=== PATIENT | female | born 1940 | race Caucasian/White ===

== ENCOUNTER 2017-04-08 09:50 | Emergency (ER) | payer MEDICARE ==
--- NOTE | 2017-04-08 10:42 | UC ---
Complaint Female HPI - HPI Summary HPI Summary: patient complains of dyuria for 1 day, lower abdominal fullness - History Of Current Complaint Stated Complaint: URINARY Time Seen by Provider: 04/08/17 10:27 Hx Obtained From: Patient ?: No Onset/Duration: Sudden Onset, Lasting Hours Timing: Constant Severity Initially: Moderate Severity Currently: Moderate Character: Dull, Burning Aggravating Factor(s): Urination Alleviating Factor(s): Nothing Associated Signs And Symptoms: Positive: Back Pain - Allergies/Home Medications Allergies/Adverse Reactions: Allergies Allergy/AdvReac Type Severity Reaction Status Date / Time Diphenhydramine Allergy Severe AGITATED Verified 04/14/16 07:22 [From Benadryl] Codeine Allergy Intermediate DIARRHEA Verified 04/14/16 07:22 AND HEADACHE Bacitracin Allergy Unknown Unknown Verified 04/14/16 07:22 Reaction Details Adhesive Tape Allergy Rash Verified 04/14/16 07:22 Sulfamethoxazole Allergy Swelling Verified 04/14/16 07:22 w/Trimethoprim Of [From Bactrim] Face,Lips,& Throat MED FOR RHEUMATOID ARTHRITIS Allergy Unknown Unknown Uncoded 04/14/16 07:22 Reaction Details PMH/Surg Hx/FS Hx/Imm Hx Previously Healthy: Yes - Surgical History Surgical History: Yes Surgery Procedure, Year, and Place: PARTIAL HYSTERECTOMY 1975, TUBAL LIGATION, CATARACTS BILATERAL - Family History Known Family History: Positive: Cardiac Disease, Hypertension - Social History Alcohol Use: None Substance Use Type: None Smoking Status (MU): Former Smoker Type: Cigarettes Amount Used/How Often: 2 CIGS PER DAY Length of Time of Smoking/Using Tobacco: 50 YEARS Have You Smoked in the Last Year: Yes When Did the Patient Quit Smoking/Using Tobacco: ~June 2015 - Immunization History Most Recent Influenza Vaccination: February 2016 Most Recent Pneumonia Vaccination: February 2016 Review of Systems Constitutional: Negative Skin: Negative Eyes: Negative ENT: Negative Respiratory: Negative Cardiovascular: Negative Gastrointestinal: Abdominal Pain Genitourinary: Dysuria, Hematuria, Frequency Motor: Negative Neurovascular: Negative Musculoskeletal: Negative Neurological: Negative Psychological: Negative Is Patient Immunocompromised?: No All Other Systems Reviewed And Are Negative: Yes Physical Exam Triage Information Reviewed: Yes Appearance: Well-Appearing, Well-Nourished, Pain Distress Vital Signs Reviewed: Yes Eye Exam: Normal ENT Exam: Normal Dental Exam: Normal Neck exam: Normal Neck: Positive: Supple, Nontender, No Lymphadenopathy Respiratory Exam: Normal Respiratory: Positive: Chest non-tender, Lungs clear, Normal breath sounds Cardiovascular Exam: Normal Cardiovascular: Positive: RRR, No Murmur, Pulses Normal Abdominal Exam: Normal Abdomen Description: Positive: Nontender, No Organomegaly, Soft, CVA Tenderness (R) - neg, CVA Tenderness (L) - neg Bowel Sounds: Positive: Present Musculoskeletal Exam: Normal Neurological Exam: Normal Psychological Exam: Normal Skin Exam: Normal Complaint Female Dx - Course Course Of Treatment: hx obtained, exam performed ,meds reviewed, treated for UTI - Differential Dx/Diagnosis Differential Diagnosis/HQI/PQRI: Ureteral Stone, Urinary Tract Infection Provider Diagnoses: UTI Discharge - Discharge Plan Condition: Stable Disposition: HOME Prescriptions: Fosfomycin Tromethamine [Monurol] 5.631 gm PO ONCE #1 jimi Patient Education Materials: Urinary Tract Infection in Women (ED) Additional Instructions: 1. take the medication as prescribed. 2. Increase fluid intake and get rest 3. Follow up with any increase or worsening symptoms
[2017-04-08 11:05] VITALS: BP 112/54
== END 2017-04-08 11:05 | disposition home or self-care (01) ==
LOC: UCCORT 09:50
DX: N39.0 Urinary tract infection, site not specified (principal); Z88.1 Allergy status to other antibiotic agents; Z88.5 Allergy status to narcotic agent; Z88.2 Allergy status to sulfonamides; Z91.048 Other nonmedicinal substance allergy status; Z87.891 Personal history of nicotine dependence
CPT/HCPCS: 81003; 87077; 87086; 87186; 99211; G0463